=== PATIENT | female | born 1940 | race American Indian/Alaskan Native ===

== ENCOUNTER 2016-09-25 18:54 | Emergency (ER) | payer MEDICAID, MEDICARE ==
[2016-09-25 19:40] VITALS: BP 150/80; PULSE 57; RESP 20; TEMP 98.5; O2SAT 97
== END 2016-09-25 23:03 | disposition left against medical advice (07) ==
LOC: C.ER 18:54
DX: R52 Pain, unspecified (principal); Z02.9 Encounter for administrative examinations, unspecified

== ENCOUNTER 2016-10-02 13:55 | Emergency (ER) | payer MEDICARE ==
[2016-10-02 14:34] VITALS: BP 109/73; PULSE 73; RESP 18; TEMP 98.7; O2SAT 97
--- NOTE | 2016-10-02 15:04 | C.PDOC ---
History Of Present Illness 76 year old patient presents to the ED for opiate detox. Patient reports she has been using opiates to relieve her chronic neck pain. She admits her last use was today. Patient denies suicidal ideation, homicidal ideation, or any other complaints. Time Seen by Provider: 10/02/16 14:45 Chief Complaint (Nursing): Substance Abuse History Per: Patient History/Exam Limitations: no limitations Onset/Duration Of Symptoms: Other Current Symptoms Are (Timing): Still Present Suicide/Self Injury Attempted (Context): None Modifying Factor(s): Other (opiate) Severity: Mild Pain Scale Rating Of: 3 Recent travel outside of the [place]: No Past Medical History Reviewed: Historical Data, Nursing Documentation, Vital Signs Vital Signs: Last Vital Signs Temp 98.7 F 10/02/16 14:26 Pulse 73 10/02/16 14:26 Resp 18 10/02/16 15:10 BP 109/73 10/02/16 14:26 Pulse Ox 97 10/02/16 15:09 - Medical History PMH: Arthritis, HTN, Pancreatitis, Rheumatoid Arthritis Surgical History: Appendectomy - [facility] Procedures VACCINATION NEC (10/06/14) Family History: States: Unknown Family Hx - Social History Hx Alcohol Use: No Hx Substance Use: Yes (MORPHINE, OXYCODONE) - Immunization History Hx Influenza Vaccination: Yes Review Of Systems Except As Marked, All Systems Reviewed And Found Negative. Constitutional: Negative for: Fever Psych: Negative for: Suicidal ideation, Other (homicidal ideation) Physical Exam - Physical Exam Appears: Non-toxic, No Acute Distress Skin: Warm, Dry Head: Atraumatic, Normacephalic Neck: Normal ROM, Supple Chest: Symmetrical Cardiovascular: Rhythm Regular Respiratory: No Accessory Muscle Use Extremity: Normal ROM Extremity: Bilateral: Atraumatic Neurological/Psych: Oriented x3 Gait: Steady ED Course And Treatment O2 Sat by Pulse Oximetry: 97 (room air) Pulse Ox Interpretation: Normal Progress Note: No detox beds are available at this time. More information and phone number were given to contact the detox center. Disposition - Disposition Referrals: Dorina Humphrey, [Non-Staff] - Disposition: HOME/ ROUTINE Disposition Time: 14:45 Condition: GOOD Additional Instructions: Thank you for letting us take care of you today. Your provider was Dr. Woodson. You were treated for opiate abuse. The emergency medical care you received today was directed at your acute symptoms. If you were prescribed any medication, please fill it and take as directed. It may take several days for your symptoms to resolve. Return to the Emergency Department if your symptoms worsen, do not improve, or if you have any other problems. Please contact your doctor or call one of the physicians/clinics you have been referred to that are listed on the Patient Visit Information form that is included in your discharge packet. Bring any paperwork you were given at discharge with you along with any medications you are taking to your follow up visit. Our treatment cannot replace ongoing medical care by a primary care provider (PCP) outside of the emergency department. Thank you for allowing the [facility] team to be part of your care today. Follow up with the detox center (phone number given) to find out about bed availability. Instructions: Narcotic Abuse (ED) - Clinical Impression Clinical Impression: Drug dependence - Scribe Statement The provider has reviewed the documentation as recorded by the Scribe Micaela Painting Provider Attestation: All medical record entries made by the Scribe were at my direction and personally dictated by me. I have reviewed the chart and agree that the record accurately reflects my personal performance of the history, physical exam, medical decision making, and the department course for this patient. I have also personally directed, reviewed, and agree with the discharge instructions and disposition.
== END 2016-10-02 15:10 | disposition home or self-care (01) ==
LOC: C.ER 13:55
DX: F19.20 Other psychoactive substance dependence, uncomplicated (principal)

== ENCOUNTER 2016-10-11 19:35 | Inpatient (IN) | payer MEDICARE ==
--- NOTE | 2016-10-11 20:25 | C.PDOC ---
History Of Present Illness 76 y/o female presents to ED for oxycontin detox. Pt prescreened. No physical complaints at this time. Time Seen by Provider: 10/11/16 20:11 Chief Complaint (Nursing): Substance Abuse History Per: Patient History/Exam Limitations: no limitations Suicide/Self Injury Attempted (Context): None Modifying Factor(s): Narcotics Severity: Mild Involuntary Hold By: None Recent travel outside of the [place]: No Past Medical History Reviewed: Historical Data, Nursing Documentation, Vital Signs Vital Signs: Last Vital Signs Temp 97.8 F 10/11/16 19:58 Pulse 81 10/11/16 19:58 Resp 14 10/11/16 19:58 BP 129/78 10/11/16 19:58 Pulse Ox 100 10/11/16 20:25 - Medical History PMH: Arthritis, HTN, Pancreatitis, Rheumatoid Arthritis Surgical History: Appendectomy - [facility] Procedures VACCINATION NEC (10/06/14) Family History: States: Unknown Family Hx - Social History Hx Alcohol Use: No Hx Substance Use: Yes (MORPHINE, OXYCODONE) - Immunization History Hx Influenza Vaccination: Yes Review Of Systems Except As Marked, All Systems Reviewed And Found Negative. Physical Exam - Physical Exam Additional Physical Exam Comments: Constitutional: No acute distress. Head: Normocephalic. Atraumatic. Eyes: PERRL. Neck: Supple. Cardiovascular: Regular rate. Radial pulse 2+ bilaterally. Chest: No tenderness. Respiratory: Clear to auscultation bilaterally. GI: Soft. Nontender. Nondistended. Back: No CVA tenderness. Musculoskeletal: No tenderness or swelling of extremities. Skin: No rash. Neurologic: Alert, no focal deficit. ED Course And Treatment - Laboratory Results Result Diagrams: 10/11/16 20:40 10/11/16 20:40 O2 Sat by Pulse Oximetry: 100 (room air) Pulse Ox Interpretation: Normal Disposition - Disposition Disposition: HOSPITALIZED Disposition Time: 21:30 Condition: FAIR - Clinical Impression Clinical Impression: Opioid use disorder, severe, dependence - Scribe Statement The provider has reviewed the documentation as recorded by the Fabianoibavni Hernandez Provider Attestation: All medical record entries made by the Fabianoibe were at my direction and personally dictated by me. I have reviewed the chart and agree that the record accurately reflects my personal performance of the history, physical exam, medical decision making, and the department course for this patient. I have also personally directed, reviewed, and agree with the discharge instructions and disposition.
[2016-10-11 20:43] LABS: BASO % 0.3 % (0.0-2.0); EOS # 0.1 K/uL (0.0-0.7); EOS % 1.5 % (0.0-4.0); HEMOGLOBIN 12.5 g/dL (11.0-16.0); LYMPH # 1.7 K/uL (1.0-4.3); LYMPH % 20.4 % (20.0-40.0); MEAN CELL VOLUME 88.2 fL (81.0-99.0); MEAN CORPUSCULAR HEMOGLOBIN 29.1 pg (27.0-31.0); MEAN CORPUSCULAR HGB CONC 32.9 g/dL (33.0-37.0); MEAN PLATELET VOLUME 8.1 fL (7.2-11.7); MONO # 0.7 K/uL (0.0-0.8); MONO % 8.4 % (0.0-10.0); NEUT # 5.6 K/uL (1.8-7.0); NEUT % 69.4 % (50.0-75.0); NRBC % 0.1 % (0.0-2.0); RBC 4.3 Mil/uL (3.80-5.20); RED CELL DISTRIBUTION WIDTH 13.4 % (11.5-14.5); WHITE BLOOD COUNT 8.1 K/uL (4.8-10.8)
[2016-10-11 20:53] LABS: ALBUMIN 3.9 g/dL (3.5-5.0)
[2016-10-11 20:56] LABS: ALB/GLOB RATIO 1.3 (1.0-2.1); AST/SGOT 28 U/L (14-36); BLOOD UREA NITROGEN 15 mg/dL (7-17); GFR AFRICAN-AMERICAN 59; GFR NON-AFRICAN AMERICAN 49
[2016-10-11 20:57] LABS: ALT/SGPT 16 U/L (9-52); CALCIUM 9.5 mg/dl (8.6-10.4)
[2016-10-11 21:17] LABS: URINE BACTERIA RARE (<OCC); URINE BILIRUBIN NEGATIVE (NEGATIVE); URINE BLOOD NEGATIVE (NEGATIVE); URINE CLARITY Clear (Clear); URINE COLOR Yellow (YELLOW); URINE GLUCOSE (UA) NORMAL (Normal); URINE HYALINE CAST 0-2 /lpf (0-2); URINE LEUKOCYTE ESTERASE NEG Leu/uL (Negative); URINE NITRATE NEGATIVE (NEGATIVE); URINE PROTEIN NEGATIVE (NEGATIVE); URINE UROBILINOGEN NORMAL mg/dL (0.2-1.0)
[2016-10-11 21:20] LABS: BARBITURATES, UR NEGATIVE (NEGATIVE)
[2016-10-11 21:21] LABS: BENZODIAZEPINES, UR POSITIVE (NEGATIVE)
[2016-10-11 21:24] LABS: PHENCYCLIDINE, UR NEGATIVE (NEGATIVE)
[2016-10-11 21:29] LABS: OPIATES, UR POSITIVE (NEGATIVE)
[2016-10-12] MEDS ORDERED: Potassium Chloride 20 mEq ER Tab PO ONE (06:37)
--- NOTE | 2016-10-12 09:21 | CP.PCM.CON ---
<Beata Jo - Last Filed: 10/12/16 09:09> History of Present Illness - History of Present Illness History of Present Illness: Medicine Consult Note- Dr Green's Service Patient is a 76 year old female with PMHx of HTN, cerebral aneursym, cataracts, TIA, mitral valve prolapse, and chronic pain who was admitted to detox for opioid use disorder. Medicine team was consulted for medical management. Patient takes medication for her blood pressure control daily and is compliant with her meds. Patient follows with her PMD Dr Zuri Quezada at [facility] routinely. Patient also has seen a artillery officer in the past for her MVP and was told that she was stable and did not need intervention. Patient follows with neurosurgeon Dr Stein as outpatient and is currently in the process of arranging for repair of her aneurysm. Patient states that she feels well today and denies withdrawal symptoms such as nausea, vomiting, pain, tremor, headache , dizziness, abdominal pain, sweats, diarrhea, and constipation. This is patient's first time in detox unit and is looking forward to discontinuing her narcotic use. All other ROS reviewed and negative at this time. PMD: Dr Zuri Quezada PMHx: HTN, cerebral aneursym, cataracts, TIA, mitral valve prolapse, and chronic pain Home Meds: Cartia 180mg daily, Furosemide 40mg BID, Lopressor 25mg BID Surgical Hx: tonsillectomy, bilateral breast lumpectomy (benign), hysterectomy Family Hx: Mom- HTN Allergies: Erythromycin, iodine (anaphylaxis) Review of Systems - Constitutional Constitutional: As Per HPI. absent: Chills, Fatigue, Fever, Weakness - EENT Eyes: As Per HPI. absent: Change in Vision Ears: As Per HPI. absent: Dizziness Nose/Mouth/Throat: As Per HPI. absent: Sore Throat - Cardiovascular Cardiovascular: As Per HPI. absent: Chest Pain, Dyspnea, Dyspnea on Exertion, Lightheadedness, Palpitations, Pedal Edema, Rapid Heart Rate - Respiratory Respiratory: As Per HPI. absent: Cough, Dyspnea, Wheezing, Chest Congestion - Gastrointestinal Gastrointestinal: As Per HPI. absent: Abdominal Pain, Constipation, Diarrhea, Heartburn, Nausea, Vomiting - Genitourinary Genitourinary: As Per HPI. absent: Change in Urinary Stream, Difficulty Urinating - Musculoskeletal Musculoskeletal: As Per HPI. absent: Muscle Weakness, Numbness, Tingling - Integumentary Integumentary: As Per HPI. absent: New Lesions, Rash - Neurological Neurological: As Per HPI. absent: Dizziness, Headaches, Weakness - Psychiatric Psychiatric: As Per HPI. absent: Anxiety, Depression, Hopelessness - Endocrine Endocrine: As Per HPI. absent: Palpitations Past Patient History - Infectious Disease Hx of Infectious Diseases: None - Past Medical History & Family History Past Medical History?: Yes - Past Social History Smoking Status: Former Smoker - CARDIAC Hx Hypertension: Yes - PULMONARY Hx Respiratory Disorders: No - NEUROLOGICAL Hx Neurological Disorder: No - HEENT Hx Cataracts: Yes Hx Glaucoma: Yes - RENAL Hx Chronic Kidney Disease: No - ENDOCRINE/METABOLIC Hx Endocrine Disorders: No - HEMATOLOGICAL/ONCOLOGICAL Hx Blood Disorders: No - INTEGUMENTARY Hx Dermatological Problems: No - MUSCULOSKELETAL/RHEUMATOLOGICAL Hx Arthritis: Yes Hx Falls: Yes Hx Fractures: Yes Hx Herniated Disk: Yes Hx Rheumatoid Arthritis: Yes - GASTROINTESTINAL Hx Pancreatitis: Yes - GENITOURINARY/GYNECOLOGICAL Hx Genitourinary Disorders: No - PSYCHIATRIC Hx Depression: Yes Hx Substance Use: Yes (MORPHINE, OXYCONTIN) - SURGICAL HISTORY Hx Appendectomy: Yes Hx Hysterectomy: Yes Hx Tonsillectomy: Yes - ANESTHESIA Hx Anesthesia: Yes Hx Anesthesia Reactions: No Hx Malignant Hyperthermia: No Meds Allergies/Adverse Reactions: Allergies Allergy/AdvReac Type Severity Reaction Status Date / Time erythromycin base Allergy RASH Verified 10/11/16 20:02 Iodine and Iodide Containing Allergy RASH Verified 10/11/16 20:02 Produc - Medications Medications: Current Medications Diltiazem HCl (Cardizem Cd) 180 mg PO DAILY SHIRLEY Furosemide (Lasix) 40 mg PO BID SHIRLEY Metoprolol Tartrate (Lopressor) 25 mg PO BID SHIRLEY Pantoprazole Sodium (Protonix Ec Tab) 40 mg PO DAILY SHIRLEY Trazodone HCl (Desyrel) 50 mg PO HS PRN PRN Reason: insomnia Physical Exam - Constitutional Appears: Non-toxic, No Acute Distress - Head Exam Head Exam: ATRAUMATIC, NORMOCEPHALIC - Eye Exam Eye Exam: EOMI Additional comments: bilateral eye cataracts - ENT Exam ENT Exam: Mucous Membranes Moist, Normal Exam - Neck Exam Neck exam: Positive for: Normal Inspection Additional comments: No JVD - Respiratory Exam Respiratory Exam: Clear to Auscultation Bilateral, NORMAL BREATHING PATTERN. absent: Rhonchi, Wheezes, Respiratory Distress - Cardiovascular Exam Cardiovascular Exam: REGULAR RHYTHM, +S1, +S2. absent: Tachycardia, Irregular Rhythm, Systolic Murmur - GI/Abdominal Exam GI & Abdominal Exam: Normal Bowel Sounds, Soft. absent: Distended, Firm, Tenderness - Extremities Exam Extremities exam: Positive for: full ROM, normal inspection. Negative for: calf tenderness, pedal edema - Back Exam Back exam: NORMAL INSPECTION - Neurological Exam Neurological exam: Alert, CN II-XII Intact, Normal Gait, Oriented x3 - Psychiatric Exam Psychiatric exam: Normal Affect, Normal Mood - Skin Skin Exam: Dry, Intact, Normal Color, Warm Results - Vital Signs Recent Vital Signs: Last Vital Signs Temp 98.4 F 10/12/16 06:20 Pulse 75 10/12/16 06:20 Resp 18 10/12/16 06:20 BP 125/74 10/12/16 06:20 Pulse Ox 96 10/12/16 06:20 - Labs Result Diagrams: 10/11/16 20:40 10/11/16 20:40 Assessment & Plan - Assessment and Plan (Free Text) Assessment: 76 year old female with PMHx of HTN, cerebral aneursym, cataracts, TIA, mitral valve prolapse, and chronic pain who was consulted for medical management. 1. HTN * Well controlled * Continue home meds with holding parameters: Cardizem 180mg PO daily, Furosemide 40mg PO BID, and Lopressor 25mg PO BID * Vitals q4h 2. 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 Two 2mm medially and laterally projecting right-sided para ophthalmic aneurysms. * Maintain strict blood pressure control (SBP<140) * Patient following with outpatient neurosurgeon Dr Stein, no acute management at this time. 3. Chronic Pain * management per detox team Thank you for this interesting consult. We will continue to follow. Beata Jo DO, PGY-3 <Varghese Green - Last Filed: 10/12/16 14:21> Meds - Medications Medications: Current Medications Diltiazem HCl (Cardizem Cd) 180 mg PO DAILY SHIRLEY Furosemide (Lasix) 40 mg PO BID SHIRLEY Metoprolol Tartrate (Lopressor) 25 mg PO BID SHIRLEY Pantoprazole Sodium (Protonix Ec Tab) 40 mg PO DAILY SHIRLEY Trazodone HCl (Desyrel) 50 mg PO HS PRN PRN Reason: insomnia Results - Vital Signs Recent Vital Signs: Last Vital Signs Temp 98.1 F 10/12/16 09:00 Pulse 60 10/12/16 09:00 Resp 18 10/12/16 09:00 BP 149/79 10/12/16 09:00 Pulse Ox 99 10/12/16 09:00 - Labs Result Diagrams: 10/11/16 20:40 10/11/16 20:40 Attending/Attestation - Attestation I have personally seen and examined this patient.: Yes I have fully participated in the care of the patient.: Yes I have reviewed all pertinent clinical information: Yes Notes (Text): 10/12/16 14:20 Medical attending: Patient was seen and examined by me, agrees the above note by medical scheduler. The patient was not under any acute distress when we saw her, she explains to us that she's been taking narcotic pain medication for quite some time and she would like to get off these. She does have a history of aneurysms as well as hypertension for the duration while she is here regular follow her blood pressure values. Continue some of her home medication check blood work for tomorrow Thank you very much, Varghese Green
[2016-10-12] MEDS: diltiaZEM 180 mg/24 Hours CD Cap PO SCH (14:22)
[2016-10-12] MEDS: Pantoprazole 40 mg EC Tab PO SCH (14:26)
--- NOTE | 2016-10-12 14:44 | PCM.PSYCH ---
Initial Psychiatric Evaluation - Initial Psychiatric Evaluation Type of Admission: Voluntary Legal Status: Capacity Chief Complaint (in patient's own words): "I needed help" History of Present Illness and Precipitating Events: The patient is seen, chart reviewed and case discussed. This is a 76-year-old -[place] female, since 1990, has an adopted son and a daughter. She is on disability. The patient is here for opioid dependence. She was given OxyContin and MS-IR by pain doctors who "suddenly decided to cut (her) off." She claims that it's because of the stricter [place] regulations that they were afraid. She says she hasn't taken anything for 2 days and she feels she is getting into withdrawals. She has used up for 10 years, developed tolerance and had wdw sxs when she could not use. She has tried t cut back unsuccessfully in the past. She denies using too much to get high, and she denies using from the streets. She also denies all other drugs, alcohol and cigarette use. Past psych history: She was admitted once in early with depression to [facility]. She currently has mild anxiety but denies depression or other psych symptoms. Medical history: Aneurysm, high blood pressure, pain syndrome (mostly back, but also knees). She is planning on going to a non-narcotic pain specialist. We called a few for her. Family psych history: Sister and brother had abused opioids in the past. Current Medications: Active Medications Generic Name Dose Route Start Last Admin Trade Name Freq PRN Reason Stop Dose Admin Diltiazem HCl 180 mg 10/12/16 10:10/12/16 14:22 Cardizem Cd PO Not Given DAILY SHIRLEY Furosemide 40 mg 10/12/16 10:10/12/16 14:26 Lasix PO 40 mg BID SHIRLEY Administration Metoprolol Tartrate 25 mg 10/12/16 10:00 10/12/16 14:22 Lopressor PO Not Given BID SHIRLEY Pantoprazole Sodium 40 mg 10/12/16 10:10/12/16 14:26 Protonix Ec Tab PO 40 mg DAILY SHIRLEY Administration Trazodone HCl 50 mg 10/11/16 22:22 Desyrel PO HS PRN insomnia Past Psychiatric History - Past Psychiatric History Previous Treatment History: Inpatient Pertinent Medical Hx (Current Medical&Sleep Prob, Allergies): Allergies Allergy/AdvReac Type Severity Reaction Status Date / Time erythromycin base Allergy RASH Verified 10/11/16 20:02 Iodine and Iodide Containing Allergy RASH Verified 10/11/16 20:02 Produc Metoprolol Tartrate [Lopressor] 25 mg PO BID 10/12/14 Diltiazem HCl [Cartia Xt] 180 mg PO DAILY 09/25/16 Furosemide 40 mg PO BID 09/25/16 Review of Systems - Musculoskeletal Musculoskeletal: Back Pain, Myalgias, Neck Pain - Neurological Neurological: Weakness - Psychiatric Psychiatric: Abnormal Sleep Pattern, Anxiety, Difficulty Concentrating, Memory Loss. absent: Hallucinations, Homicidal Ideation, Paranoia, Suicidal Ideation Mental Status Examination - Personal Presentation Personal Presentation: Looks stated age - Affect Affect: Constricted - Motor Activity Motor Activity: Calm - Reliability in Providing Information Reliability in Providing Information: Good - Speech Speech: Organized - Mood Mood: Anxious - Formal Thought Process Formal Thought Process: No Impairment - Cognitive Functions Orientation: Person, Place, Situation, Time Sensorium: Alert Attention/Concentration: Easily distracted Estimate of Intelligence: Average Judgement: Intact, as evidence by: Insight regarding need for hospitalization Memory: Recent intact, as evidence by: Ability to recall events of the day, Remote impaired as evidenced by: Inability to recall historical events - Risk Risk: Withdrawal, Diminished functioning - Strength & Assets Inventory Strength & Assets Inventory: Intelligence, Family support, Cooperative - Limitations Limitations: Other DSM 5 DX - DSM 5 DSM 5 Diagnosis: Opioid dependence Opioid withdrawal Mild cognitive decline - Recommended/Plan of Treatment Treatment Recommendations and Plan of Treatment: Low dose methadone detox due to her age As needed meds Pharnacy called and doses are learned and started for all her medical meds Periactin is started as she wants to gain weight Continue remeron, too, but lower dose Support and psychoed GA for abstinence 33 min Projected ELOS: 4 days Prognosis: good with treatment Discharge Plan and Discharge Criteria: No wdw sxs refer back home and pain MDs - Smoking Cessation Smoking Cessation Initiated: No Reason for not providing: not smoking
[2016-10-12] MEDS ORDERED: Aluminum Hydroxide/Magnesium Hydroxide Susp (30 mL) PO PRN (15:02)
[2016-10-12] MEDS: diltiaZEM 120 mg/24 Hours CD Cap PO SCH (20:16)
[2016-10-12] MEDS: Lidocaine 5% Oint(35 gm) TOP SCH (20:16)
[2016-10-13 07:44] LABS: HEMOGLOBIN 13.7 g/dL (11.0-16.0); MEAN CELL VOLUME 88.1 fL (81.0-99.0); MEAN CORPUSCULAR HEMOGLOBIN 28.7 pg (27.0-31.0); MEAN CORPUSCULAR HGB CONC 32.6 g/dL (33.0-37.0); MEAN PLATELET VOLUME 8.8 fL (7.2-11.7); RBC 4.77 Mil/uL (3.80-5.20); RED CELL DISTRIBUTION WIDTH 13.3 % (11.5-14.5); WHITE BLOOD COUNT 7.6 K/uL (4.8-10.8)
[2016-10-13 08:01] LABS: ALBUMIN 3.7 g/dL (3.5-5.0)
[2016-10-13 08:03] LABS: AST/SGOT 23 U/L (14-36); GFR AFRICAN-AMERICAN > 60; GFR NON-AFRICAN AMERICAN 54
[2016-10-13 08:04] LABS: ALB/GLOB RATIO 1.2 (1.0-2.1); ALT/SGPT 20 U/L (9-52); BLOOD UREA NITROGEN 14 mg/dL (7-17); CALCIUM 9.3 mg/dl (8.6-10.4)
[2016-10-13] MEDS: Pantoprazole 40 mg EC Tab PO SCH (09:32)
[2016-10-13] MEDS: diltiaZEM 180 mg/24 Hours CD Cap PO SCH (09:34)
[2016-10-13] MEDS: Lidocaine 5% Oint(35 gm) TOP SCH ×2 (09:37→21:06)
[2016-10-13] MEDS ORDERED: diltiaZEM 120 mg/24 Hours CD Cap PO SCH (10:00)
[2016-10-13] MEDS ORDERED: Potassium Chloride 20 mEq ER Tab PO ONE (10:40)
[2016-10-13] MEDS: diltiaZEM 120 mg/24 Hours CD Cap PO SCH (11:07)
--- NOTE | 2016-10-13 11:34 | PCM.PYCHPN ---
Psychiatric Progress Note - Psychiatric Progress Note Patient seen today, length of contact: 15 min Patient Chief Complaint: I'm experiencing withdrawal symptoms Problems Identified/Issues Discussed: Patient seen and evaluated, chart reviewed and discussed with the nurse. As per the staff, patient reports irritability and reports withdrawal symptoms including abdominal cramps, back pain, anxiety, and sweating. She is tolerating the detox protocol medications and denies any side effects of the medications. She denies any suicidal ideation or homicidal ideation. Supportive therapy and psychoeducation were given. Medication Change: No Medical Record Reviewed: Yes Mental Status Examination - Cognitive Function Orientation: Person, Place, Situation, Time Memory: Intact Attention: WNL Concentration: Poor Association: WNL Fund of Knowledge: Poor - Mood Mood: Anxious - Affect Affect: Constricted - Speech Speech: Soft - Formal Thought Process Formal Thought Process: No Impairment - Suicidal Ideation Suicidal Ideation: No - Homicidal Ideation Homicidal Ideation: No Goal/Treatment Plan - Goal/Treatment Plan Need for Continued Stay: Discharge may exacerbated symptoms, Severe functional impairment Progress Toward Problem(s) and Goals/Treatment Plan: Opioid dependence Opioid withdrawal Mild cognitive decline Low dose methadone detox due to her age As needed meds Pharnacy called and doses are learned and started for all her medical meds Periactin is started as she wants to gain weight Continue remeron, too, but lower dose Support and psychoed PA for abstinence - Smoking Cessation Smoking Cessation Initiated: No
[2016-10-13] MEDS: Lidocaine 5% Patch TD SCH (22:30)
[2016-10-14 07:58] LABS: HEMOGLOBIN 14.9 g/dL (11.0-16.0); MEAN CELL VOLUME 89.1 fL (81.0-99.0); MEAN CORPUSCULAR HEMOGLOBIN 28.5 pg (27.0-31.0); MEAN PLATELET VOLUME 9.1 fL (7.2-11.7); RBC 5.23 Mil/uL (3.80-5.20); RED CELL DISTRIBUTION WIDTH 13.6 % (11.5-14.5); WHITE BLOOD COUNT 14.8 K/uL (4.8-10.8)
[2016-10-14 08:43] LABS: ALBUMIN 4.1 g/dL (3.5-5.0)
[2016-10-14 08:46] LABS: AST/SGOT 24 U/L (14-36); GFR AFRICAN-AMERICAN > 60; GFR NON-AFRICAN AMERICAN > 60
[2016-10-14 08:47] LABS: ALB/GLOB RATIO 1.2 (1.0-2.1); ALT/SGPT 14 U/L (9-52); BLOOD UREA NITROGEN 13 mg/dL (7-17); CALCIUM 9.9 mg/dl (8.6-10.4); MAGNESIUM 2.2 mg/dL (1.6-2.3)
[2016-10-14] MEDS ORDERED: Potassium Chloride 20 mEq ER Tab PO ONE (09:08)
[2016-10-14] MEDS: NEOMYCIN OP SCH (10:11)
[2016-10-14] MEDS: HYDROCORT OP SCH (10:11)
[2016-10-14] MEDS: Lidocaine 5% Oint(35 gm) TOP SCH ×2 (10:11→19:58)
[2016-10-14] MEDS: POLYMYXIN OP SCH (10:11)
--- NOTE | 2016-10-14 10:44 | PCM.PYCHPN ---
Psychiatric Progress Note - Psychiatric Progress Note Patient seen today, length of contact: 16 min Patient Chief Complaint: I'm experiencing withdrawal symptoms Problems Identified/Issues Discussed: Patient seen and evaluated, chart reviewed and discussed with the nurse. As per the staff, last night patient started scoring and started having severe nausea, vomiting, and abdominal cramps. She reports other withdrawal symptoms including back pain, anxiety, and headaches. Because of continuous vomiting medicine was consulted. However patient is tolerating the detox protocol medications and denies any side effects of the medications. Supportive therapy and psychoeducation were given. Medication Change: Yes (Methadone taper) Medical Record Reviewed: Yes Mental Status Examination - Cognitive Function Orientation: Person, Place, Situation, Time Memory: Intact Attention: WNL Concentration: Poor Association: WNL Fund of Knowledge: Poor - Mood Mood: Anxious - Affect Affect: Constricted - Speech Speech: Soft - Formal Thought Process Formal Thought Process: No Impairment - Suicidal Ideation Suicidal Ideation: No - Homicidal Ideation Homicidal Ideation: No Goal/Treatment Plan - Goal/Treatment Plan Need for Continued Stay: Discharge may exacerbated symptoms, Severe functional impairment Progress Toward Problem(s) and Goals/Treatment Plan: Opioid dependence Opioid withdrawal Mild cognitive decline Low dose methadone detox due to her age As needed meds Periactin is started as she wants to gain weight Continue remeron, too, but lower dose Support and psychoed [place] for abstinence - Smoking Cessation Smoking Cessation Initiated: No
[2016-10-14] MEDS: Pantoprazole 40 mg EC Tab PO SCH (11:54)
[2016-10-14] MEDS: diltiaZEM 120 mg/24 Hours CD Cap PO SCH (11:55)
[2016-10-14] MEDS ORDERED: Sodium Chloride 0.45% 1,000 ML IV ONE (12:01)
[2016-10-14] MEDS ORDERED: Morphine 4 MG/ML VIAL IV SCH (13:00)
[2016-10-14] MEDS ORDERED: Morphine 15 mg Immediate Release Tab PO SCH (15:15)
--- NOTE | 2016-10-14 20:36 | CP.PCM.PN ---
Subjective - Date & Time of Evaluation Date of Evaluation: 10/14/16 Time of Evaluation: 10:30 - Subjective Subjective: Medicine Note ( PGY 1) : Dr. Green's Note Patient was seen and examined at bedside. Patient was not doing well and had complaints of nausea, vomiting, diarrhea and symptoms of substance withdrawal. Patient was then transfer from detox to the medical-surg floor to be medically managed and monitored. Patient denies chest pain, sob, fever, chills, but reports abd pain, diarrhea, nausea, vomiting and fatigue. Objective - Vital Signs/Intake and Output Vital Signs (last 24 hours): Temp Pulse Resp BP Pulse Ox 98.2 F 60 18 110/65 97 10/14/16 14:04 10/14/16 14:04 10/14/16 14:04 10/14/16 19:24 10/14/16 14:04 - Medications Medications: Current Medications Acetaminophen (Tylenol 325mg Tab) 325 mg PO Q6 PRN PRN Reason: Pain, moderate (4-7) Al Hydrox/Mg Hydrox/Simethicone (Maalox 30 Ml) 30 ml PO TID PRN PRN Reason: Indigestion / Heartburn Last Admin: 10/14/16 06:50 Dose: 30 ml Amlodipine Besylate (Norvasc) 10 mg PO DAILY [facility] Last Admin: 10/14/16 11:54 Dose: 10 mg Cyproheptadine HCl (Periactin) 4 mg PO HS [facility] Last Admin: 10/13/16 22:05 Dose: 4 mg Diltiazem HCl (Cardizem Cd) 120 mg PO DAILY [facility] Last Admin: 10/14/16 11:55 Dose: 120 mg Donepezil HCl (Aricept) 10 mg PO HS [facility] Last Admin: 10/13/16 22:05 Dose: 10 mg Furosemide (Lasix) 20 mg PO DAILY [facility] Last Admin: 10/14/16 11:53 Dose: 20 mg Heparin Sodium (Porcine) (Heparin) 5,000 units SC Q8 [facility] Hydralazine HCl (Apresoline) 10 mg IVP Q6H [facility] Last Admin: 10/14/16 19:22 Dose: Not Given Hydroxyzine HCl (Atarax) 10 mg PO Q6H PRN PRN Reason: Anxiety Sodium Chloride (Sodium Chloride 0.45%) 1,000 mls @ 80 mls/hr IV .[id number] ONE Stop: 10/15/16 00:30 Last Admin: 10/14/16 18:58 Dose: 80 mls/hr Ibuprofen (Motrin Tab) 400 mg PO Q6H PRN PRN Reason: Pain, moderate (4-7) Last Admin: 10/13/16 20:44 Dose: 400 mg Lidocaine (Lidocaine 5%) 0 gm TOP BID [facility] Last Admin: 10/14/16 19:58 Dose: 1 scoopful Lidocaine (Lidoderm) 1 ea TD HS [facility] Last Admin: 10/13/16 22:30 Dose: Not Given Loperamide HCl (Imodium) 2 mg PO Q8 PRN PRN Reason: Diarrhea Last Admin: 10/14/16 04:01 Dose: 2 mg Methadone HCl (Methadone) 10 mg PO DAILY [facility] PRN Reason: Taper Stop: 10/18/16 09:59 Metoprolol Tartrate (Lopressor) 25 mg PO BID [facility] Last Admin: 10/14/16 19:24 Dose: 25 mg Mirtazapine (Remeron) 15 mg PO HS [facility] Last Admin: 10/13/16 22:05 Dose: 15 mg Morphine Sulfate (Morphine) 4 mg IV Q3 [facility] Morphine Sulfate (Morphine Immediate Release Tab) 15 mg PO Q12H [facility] Last Admin: 10/14/16 15:15 Dose: 15 mg Neomycin/Polymyxin/Hydrocortisone (Cortisporin Opht Susp) 0 ml OP DAILY [facility] Last Admin: 10/14/16 10:11 Dose: 1 drop Ondansetron HCl (Zofran Tab) 4 mg PO Q8 PRN PRN Reason: Nausea/Vomiting Last Admin: 10/14/16 04:01 Dose: 4 mg Ondansetron HCl (Zofran Inj) 4 mg IVP Q6 [facility] Last Admin: 10/14/16 19:24 Dose: 4 mg Oxycodone HCl (Oxycontin Extended Release Tab) 10 mg PO Q12H [facility] Stop: 10/17/16 22:01 Pantoprazole Sodium (Protonix Ec Tab) 40 mg PO DAILY [facility] Last Admin: 10/14/16 11:54 Dose: 40 mg Trazodone HCl (Desyrel) 50 mg PO HS PRN PRN Reason: insomnia - Labs Labs: 10/14/16 07:47 10/14/16 07:47 - Constitutional Appears: In Acute Distress - Head Exam Head Exam: NORMAL INSPECTION, NORMOCEPHALIC - Eye Exam Eye Exam: EOMI, Normal appearance - ENT Exam ENT Exam: Mucous Membranes Moist, Normal Exam - Respiratory Exam Respiratory Exam: Clear to Ausculation Bilateral, NORMAL BREATHING PATTERN - Cardiovascular Exam Cardiovascular Exam: REGULAR RHYTHM, +S1, +S2 - GI/Abdominal Exam GI & Abdominal Exam: Soft, Normal Bowel Sounds - Extremities Exam Extremities Exam: Normal Capillary Refill, Normal Inspection - Neurological Exam Neurological Exam: Alert, Awake, Oriented x3 - Psychiatric Exam Psychiatric exam: Normal Affect, Normal Mood - Skin Skin Exam: Dry, Normal Color, Warm Assessment and Plan (1) Substance abuse withdrawal Assessment & Plan: Psychiatry on board (Dr. Perez)---> Help appreciated Methadone Taper : On hold due to nausea Morphine 4mg IV Q3 due to nausea Morphine 15mg PO Q12H Status: Acute (2) Nausea & vomiting Assessment & Plan: Zofran 4mg IV q6H PRN Status: Acute (3) Diarrhea Assessment & Plan: 1/2 NS @ 80mls/hr Imodium 2mg PO Q8h PRN Maalox held Status: Acute (4) Chronic pain Assessment & Plan: Lidoderm Transdermal patch 5% TD HS Morphine 15mg PO Q12h Status: Chronic (5) Hypertension Assessment & Plan: Continue home meds with holding parameters: Cardizem 180mg PO daily, Furosemide 40mg PO BID, and Lopressor 25mg PO BID * Hydralazine 10mg IV if SBP >160mmhg * Vitals q4h Status: Chronic (6) Cerebral aneurysm Assessment & Plan: Last Brain MRA from 09/2014 reviewed: A 8mm medially-projecting, para opthalmic aneurysm arising from the left supraclinoid ICA. 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 Two 2mm medially and laterally projecting right-sided para ophthalmic aneurysms. * Maintain strict blood pressure control (SBP<140) * Patient following with outpatient neurosurgeon Dr Stein, no acute management at this time. Status: Chronic (7) Prophylactic measure Assessment & Plan: Protonix 40mg PO daily Heparin 5000 units SC q8h Status: Acute
[2016-10-14] MEDS: Lidocaine 5% Patch TD SCH (22:09)
[2016-10-14] MEDS: oxyCODONE 10 mg ER Tab (oxyCONTIN) PO SCH (22:23)
[2016-10-15 08:32] LABS: BASO % 0.3 % (0.0-2.0); EOS # 0.1 K/uL (0.0-0.7); EOS % 0.9 % (0.0-4.0); LYMPH # 1.9 K/uL (1.0-4.3); LYMPH % 17.2 % (20.0-40.0); MEAN CELL VOLUME 88.6 fL (81.0-99.0); MEAN CORPUSCULAR HEMOGLOBIN 28.8 pg (27.0-31.0); MEAN CORPUSCULAR HGB CONC 32.5 g/dL (33.0-37.0); MEAN PLATELET VOLUME 9.5 fL (7.2-11.7); MONO # 0.9 K/uL (0.0-0.8); MONO % 8.3 % (0.0-10.0); NEUT # 8.2 K/uL (1.8-7.0); NEUT % 73.3 % (50.0-75.0); NRBC % 0.1 % (0.0-2.0); RBC 4.45 Mil/uL (3.80-5.20); RED CELL DISTRIBUTION WIDTH 13.5 % (11.5-14.5); WHITE BLOOD COUNT 11.2 K/uL (4.8-10.8)
[2016-10-15 08:40] LABS: ALBUMIN 3.4 g/dL (3.5-5.0)
[2016-10-15 08:44] LABS: ALB/GLOB RATIO 1.2 (1.0-2.1); MAGNESIUM 2.2 mg/dL (1.6-2.3)
[2016-10-15 08:50] LABS: HEMOGLOBIN 12.8 g/dL (11.0-16.0)
[2016-10-15] MEDS ORDERED: Potassium Chloride 20 mEq ER Tab PO ONE (09:51)
--- NOTE | 2016-10-15 09:52 | CP.PCM.PN ---
<[place] - Last Filed: 10/15/16 19:22> Subjective - Date & Time of Evaluation Date of Evaluation: 10/15/16 Time of Evaluation: 09:20 - Subjective Subjective: Medicine Note (PGY 1) : Dr. Loza's Service Patient was seen and examined at bedside. Patient reports no acute events overnight. Patient states that she is doing much better. Patient denies abd pain , diarrhea, nausea, vomiting, chest pain, sob, fever or chills. Patient had no new complaints Objective - Vital Signs/Intake and Output Vital Signs (last 24 hours): Temp Pulse Resp BP Pulse Ox 97.9 F 64 20 145/80 96 10/15/16 07:20 10/15/16 07:20 10/15/16 07:20 10/15/16 07:20 10/15/16 07:20 Intake and Output: 10/15/16 10/15/16 06:59 18:59 Intake Total 440 Balance 440 - Medications Medications: Current Medications Acetaminophen (Tylenol 325mg Tab) 325 mg PO Q6 PRN PRN Reason: Pain, moderate (4-7) Amlodipine Besylate (Norvasc) 10 mg PO DAILY [facility] Last Admin: 10/14/16 11:54 Dose: 10 mg Cyproheptadine HCl (Periactin) 4 mg PO HS [facility] Last Admin: 10/14/16 22:11 Dose: 4 mg Diltiazem HCl (Cardizem Cd) 120 mg PO DAILY [facility] Last Admin: 10/14/16 11:55 Dose: 120 mg Donepezil HCl (Aricept) 10 mg PO HS [facility] Last Admin: 10/14/16 22:09 Dose: 10 mg Furosemide (Lasix) 20 mg PO DAILY [facility] Last Admin: 10/14/16 11:53 Dose: 20 mg Heparin Sodium (Porcine) (Heparin) 5,000 units SC Q8 [facility] Last Admin: 10/15/16 05:11 Dose: 5,000 units Hydralazine HCl (Apresoline) 10 mg IVP Q6H [facility] Last Admin: 10/15/16 06:55 Dose: Not Given Hydroxyzine HCl (Atarax) 10 mg PO Q6H PRN PRN Reason: Anxiety Ibuprofen (Motrin Tab) 400 mg PO Q6H PRN PRN Reason: Pain, moderate (4-7) Last Admin: 10/13/16 20:44 Dose: 400 mg Lidocaine (Lidocaine 5%) 0 gm TOP BID [facility] Last Admin: 10/14/16 19:58 Dose: 1 scoopful Lidocaine (Lidoderm) 1 ea TD HS [facility] Last Admin: 10/14/16 22:09 Dose: 1 ea Loperamide HCl (Imodium) 2 mg PO Q8 PRN PRN Reason: Diarrhea Last Admin: 10/14/16 04:01 Dose: 2 mg Methadone HCl (Methadone) 10 mg PO DAILY [facility] PRN Reason: Taper Stop: 10/18/16 09:59 Metoprolol Tartrate (Lopressor) 25 mg PO BID [facility] Last Admin: 10/14/16 19:24 Dose: 25 mg Mirtazapine (Remeron) 15 mg PO HS [facility] Last Admin: 10/14/16 22:09 Dose: 15 mg Neomycin/Polymyxin/Hydrocortisone (Cortisporin Opht Susp) 0 ml OP DAILY [facility] Last Admin: 10/14/16 10:11 Dose: 1 drop Ondansetron HCl (Zofran Tab) 4 mg PO Q8 PRN PRN Reason: Nausea/Vomiting Last Admin: 10/14/16 04:01 Dose: 4 mg Ondansetron HCl (Zofran Inj) 4 mg IVP Q6 [facility] Last Admin: 10/15/16 06:57 Dose: Not Given Oxycodone HCl (Oxycontin Extended Release Tab) 10 mg PO Q12H [facility] Stop: 10/17/16 22:01 Last Admin: 10/14/16 22:23 Dose: 10 mg Pantoprazole Sodium (Protonix Ec Tab) 40 mg PO DAILY [facility] Last Admin: 10/14/16 11:54 Dose: 40 mg Potassium Chloride (K-Dur 20 Meq Er Tab) 40 meq PO ONCE ONE Stop: 10/15/16 09:52 Trazodone HCl (Desyrel) 50 mg PO HS PRN PRN Reason: insomnia - Labs Labs: 10/15/16 08:22 10/15/16 08:22 - Constitutional Appears: Well, No Acute Distress - Head Exam Head Exam: NORMAL INSPECTION, NORMOCEPHALIC - Eye Exam Eye Exam: EOMI, Normal appearance - ENT Exam ENT Exam: Mucous Membranes Moist, Normal Exam - Respiratory Exam Respiratory Exam: Clear to Ausculation Bilateral, NORMAL BREATHING PATTERN - Cardiovascular Exam Cardiovascular Exam: REGULAR RHYTHM, +S1, +S2 - GI/Abdominal Exam GI & Abdominal Exam: Soft, Normal Bowel Sounds - Extremities Exam Extremities Exam: Normal Inspection - Neurological Exam Neurological Exam: Alert, Awake, Oriented x3 - Psychiatric Exam Psychiatric exam: Normal Affect, Normal Mood - Skin Skin Exam: Dry, Normal Color, Warm Assessment and Plan (1) Substance abuse withdrawal Assessment & Plan: Psychiatry on board (Dr. Perez)---> Help appreciated Methadone Taper : On hold due to nausea * Restarted today and patient will receive last dose tomorrow morning Morphine 4mg IV Q3 due to nausea (Discontinued) Morphine 15mg PO Q12H (Discontinued) Status: Acute (2) Nausea & vomiting Assessment & Plan: Resolved Zofran 4mg IV q6H PRN Status: Acute (3) Diarrhea Assessment & Plan: Resolved 1/2 NS @ 80mls/hr Imodium 2mg PO Q8h PRN Maalox held Status: Acute (4) Chronic pain Assessment & Plan: Lidoderm Transdermal patch 5% TD HS Morphine 15mg PO Q12h (Discotinued as of 10/13/16) Oxycodone 10mg po Q12H Status: Chronic (5) Hypertension Assessment & Plan: Continue home meds with holding parameters: Cardizem 180mg PO daily, Furosemide 40mg PO BID, and Lopressor 25mg PO BID * Hydralazine 10mg IV if SBP >160mmhg * Vitals q4h Status: Chronic (6) Cerebral aneurysm Assessment & Plan: Last Brain MRA from 09/2014 reviewed: A 8mm medially-projecting, para opthalmic aneurysm arising from the left supraclinoid ICA. 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 Two 2mm medially and laterally projecting right-sided para ophthalmic aneurysms. * Maintain strict blood pressure control (SBP<140) * Patient following with outpatient neurosurgeon Dr Stein, no acute management at this time. Status: Chronic (7) Prophylactic measure Assessment & Plan: Ambulating Protonix 40mg PO daily Heparin 5000 units SC q8h Status: Acute <Jeffery Loza - Last Filed: 10/16/16 10:06> Objective - Vital Signs/Intake and Output Vital Signs (last 24 hours): Temp Pulse Resp BP Pulse Ox 98.0 F 55 L 22 117/57 L 98 10/16/16 07:06 10/16/16 07:06 10/16/16 07:06 10/16/16 07:06 10/16/16 07:06 Intake and Output: 10/16/16 10/16/16 06:59 18:59 Intake Total 420 Balance 420 - Medications Medications: Current Medications Acetaminophen (Tylenol 325mg Tab) 325 mg PO Q6 PRN PRN Reason: Pain, moderate (4-7) Last Admin: 10/15/16 22:09 Dose: 325 mg Amlodipine Besylate (Norvasc) 10 mg PO DAILY [facility] Last Admin: 10/15/16 10:02 Dose: 10 mg Cyproheptadine HCl (Periactin) 4 mg PO HS [facility] Last Admin: 10/15/16 21:12 Dose: 4 mg Diltiazem HCl (Cardizem Cd) 120 mg PO DAILY [facility] Last Admin: 10/15/16 09:59 Dose: 120 mg Donepezil HCl (Aricept) 10 mg PO HS [facility] Last Admin: 10/15/16 21:12 Dose: 10 mg Furosemide (Lasix) 20 mg PO DAILY [facility] Last Admin: 10/15/16 10:00 Dose: 20 mg Heparin Sodium (Porcine) (Heparin) 5,000 units SC Q8 [facility] Last Admin: 10/16/16 05:25 Dose: 5,000 units Hydralazine HCl (Apresoline) 10 mg IVP Q6H [facility] Last Admin: 10/16/16 05:17 Dose: Not Given Hydroxyzine HCl (Atarax) 10 mg PO Q6H PRN PRN Reason: Anxiety Ibuprofen (Motrin Tab) 400 mg PO Q6H PRN PRN Reason: Pain, moderate (4-7) Last Admin: 10/16/16 05:11 Dose: 400 mg Lidocaine (Lidocaine 5%) 0 gm TOP BID [facility] Last Admin: 10/15/16 17:26 Dose: 1 scoopful Lidocaine (Lidoderm) 1 ea TD HS [facility] Last Admin: 10/15/16 21:12 Dose: 1 ea Loperamide HCl (Imodium) 2 mg PO Q8 PRN PRN Reason: Diarrhea Last Admin: 10/14/16 04:01 Dose: 2 mg Metoprolol Tartrate (Lopressor) 25 mg PO BID [facility] Last Admin: 10/15/16 17:21 Dose: 25 mg Mirtazapine (Remeron) 15 mg PO HS [facility] Last Admin: 10/15/16 21:12 Dose: 15 mg Neomycin/Polymyxin/Hydrocortisone (Cortisporin Opht Susp) 0 ml OP DAILY [facility] Last Admin: 10/15/16 10:00 Dose: 1 drop Ondansetron HCl (Zofran Tab) 4 mg PO Q8 PRN PRN Reason: Nausea/Vomiting Last Admin: 10/14/16 04:01 Dose: 4 mg Ondansetron HCl (Zofran Inj) 4 mg IVP Q6 [facility] Last Admin: 10/16/16 08:27 Dose: Not Given Oxycodone HCl (Oxycontin Extended Release Tab) 10 mg PO Q12H [facility] Stop: 10/17/16 22:01 Last Admin: 10/15/16 21:19 Dose: Not Given Pantoprazole Sodium (Protonix Ec Tab) 40 mg PO DAILY [facility] Last Admin: 10/15/16 10:02 Dose: 40 mg Trazodone HCl (Desyrel) 50 mg PO HS PRN PRN Reason: insomnia - Labs Labs: 10/16/16 07:55 10/16/16 07:55 Attending/Attestation - Attestation I have personally seen and examined this patient.: Yes I have fully participated in the care of the patient.: Yes I have reviewed all pertinent clinical information, including history, physical exam and plan: Yes Notes (Text): 10/16/16 10:05 Patient was seen and examined at bedside with the resident Patient stated that she is feeling better She continues to be on methadone taper Discharge planning once she has completed methadone taper Discussed the plan of care with the resident and agree with the history and physical and assessment/plan documented by the resident. 10/16/16 10:06
[2016-10-15] MEDS: diltiaZEM 120 mg/24 Hours CD Cap PO SCH (09:59)
[2016-10-15] MEDS: HYDROCORT OP SCH (10:00)
[2016-10-15] MEDS: NEOMYCIN OP SCH (10:00)
[2016-10-15] MEDS: POLYMYXIN OP SCH (10:00)
[2016-10-15] MEDS: Lidocaine 5% Oint(35 gm) TOP SCH ×2 (10:01→17:26)
[2016-10-15] MEDS: oxyCODONE 10 mg ER Tab (oxyCONTIN) PO SCH ×2 (10:02→21:19)
[2016-10-15] MEDS: Pantoprazole 40 mg EC Tab PO SCH (10:02)
[2016-10-15] MEDS: Lidocaine 5% Patch TD SCH (21:12)
[2016-10-16 08:07] LABS: BASO # 0.1 K/uL (0.0-0.2); BASO % 0.9 % (0.0-2.0); EOS # 0.1 K/uL (0.0-0.7); EOS % 1.5 % (0.0-4.0); HEMOGLOBIN 12.7 g/dL (11.0-16.0); LYMPH # 1.8 K/uL (1.0-4.3); MEAN CORPUSCULAR HEMOGLOBIN 28.9 pg (27.0-31.0); MEAN CORPUSCULAR HGB CONC 32.5 g/dL (33.0-37.0); MEAN PLATELET VOLUME 9.8 fL (7.2-11.7); MONO # 0.7 K/uL (0.0-0.8); MONO % 9.4 % (0.0-10.0); NEUT # 4.6 K/uL (1.8-7.0); NEUT % 63.2 % (50.0-75.0); RBC 4.4 Mil/uL (3.80-5.20); RED CELL DISTRIBUTION WIDTH 13.5 % (11.5-14.5); WHITE BLOOD COUNT 7.2 K/uL (4.8-10.8)
[2016-10-16 08:19] LABS: ALBUMIN 3.2 g/dL (3.5-5.0)
[2016-10-16 08:22] LABS: AST/SGOT 30 U/L (14-36); GFR AFRICAN-AMERICAN > 60; GFR NON-AFRICAN AMERICAN 54
[2016-10-16 08:23] LABS: ALB/GLOB RATIO 1.2 (1.0-2.1); ALT/SGPT 22 U/L (9-52); BLOOD UREA NITROGEN 30 mg/dL (7-17); MAGNESIUM 1.9 mg/dL (1.6-2.3)
[2016-10-16] MEDS: Pantoprazole 40 mg EC Tab PO SCH (10:38)
[2016-10-16] MEDS: diltiaZEM 120 mg/24 Hours CD Cap PO SCH (10:38)
[2016-10-16] MEDS: NEOMYCIN OP SCH (10:39)
[2016-10-16] MEDS: POLYMYXIN OP SCH (10:39)
[2016-10-16] MEDS: HYDROCORT OP SCH (10:39)
[2016-10-16] MEDS: Lidocaine 5% Oint(35 gm) TOP SCH ×2 (10:39→18:16)
[2016-10-16] MEDS: oxyCODONE 10 mg ER Tab (oxyCONTIN) PO SCH ×2 (10:42→22:34)
--- NOTE | 2016-10-16 10:44 | PCM.PYCHPN ---
Psychiatric Progress Note - Psychiatric Progress Note Patient seen today, length of contact: 16 min Patient Chief Complaint: "I am better today" Problems Identified/Issues Discussed: The pt is seen, chart reviewed and case discussed. She is transferred to medicine due to the severity of her wdw sxs and compromising her health due to her age. She, however, is better now. Has one last dose left for tomorrow am She will then leave. Not interested in [facility] treatment afterwards as she did not have bhv aspects of addiction. She wants to see a new pain dr who will not rx her any opioids. Support given Medication Change: Yes (Methadone taper) Medical Record Reviewed: Yes Mental Status Examination - Cognitive Function Orientation: Person, Place, Situation, Time Memory: Intact Attention: WNL Concentration: Poor Association: WNL Fund of Knowledge: Poor - Mood Mood: Anxious - Affect Affect: Constricted - Speech Speech: Soft - Formal Thought Process Formal Thought Process: No Impairment - Suicidal Ideation Suicidal Ideation: No - Homicidal Ideation Homicidal Ideation: No Goal/Treatment Plan - Goal/Treatment Plan Need for Continued Stay: Discharge may exacerbated symptoms, Severe functional impairment Progress Toward Problem(s) and Goals/Treatment Plan: Low dose methadone detox ending tomorrow Cleared for d/c As needed meds Support and psychoed [place] for abstinence
[2016-10-16 16:29] VITALS: RESP 20
--- NOTE | 2016-10-16 20:25 | CP.PCM.PN ---
<John Man - Last Filed: 10/16/16 20:14> Subjective - Date & Time of Evaluation Date of Evaluation: 10/16/16 Time of Evaluation: 13:00 - Subjective Subjective: Medicine Note (PGY 1) : Dr. Loza's Service Patient was seen and examined at bedside. Patient reports no acute events overnight. Patient states that she is doing much better. Patient was frustrated because she claims someone stole her sweater. Patient denies abd pain, diarrhea , nausea, vomiting, chest pain, sob, fever or chills. Patient had no new complaints Objective - Vital Signs/Intake and Output Vital Signs (last 24 hours): Temp Pulse Resp BP Pulse Ox 98.6 F 76 20 119/62 97 10/16/16 16:00 10/16/16 16:00 10/16/16 16:00 10/16/16 18:17 10/16/16 16:00 Intake and Output: 10/16/16 10/17/16 18:59 06:59 Intake Total 720 Balance 720 - Medications Medications: Current Medications Acetaminophen (Tylenol 325mg Tab) 325 mg PO Q6 PRN PRN Reason: Pain, moderate (4-7) Last Admin: 10/15/16 22:09 Dose: 325 mg Amlodipine Besylate (Norvasc) 10 mg PO DAILY [facility] Last Admin: 10/16/16 10:39 Dose: 10 mg Cyproheptadine HCl (Periactin) 4 mg PO HS [facility] Last Admin: 10/15/16 21:12 Dose: 4 mg Diltiazem HCl (Cardizem Cd) 120 mg PO DAILY [facility] Last Admin: 10/16/16 10:38 Dose: 120 mg Donepezil HCl (Aricept) 10 mg PO HS [facility] Last Admin: 10/15/16 21:12 Dose: 10 mg Furosemide (Lasix) 20 mg PO DAILY [facility] Last Admin: 10/16/16 10:38 Dose: 20 mg Heparin Sodium (Porcine) (Heparin) 5,000 units SC Q8 [facility] Last Admin: 10/16/16 13:25 Dose: 5,000 units Hydralazine HCl (Apresoline) 10 mg IVP Q6H [facility] Last Admin: 10/16/16 18:11 Dose: Not Given Hydroxyzine HCl (Atarax) 10 mg PO Q6H PRN PRN Reason: Anxiety Ibuprofen (Motrin Tab) 400 mg PO Q6H PRN PRN Reason: Pain, moderate (4-7) Last Admin: 10/16/16 10:44 Dose: 400 mg Lidocaine (Lidocaine 5%) 0 gm TOP BID [facility] Last Admin: 10/16/16 18:16 Dose: 1 scoopful Lidocaine (Lidoderm) 1 ea TD HS [facility] Last Admin: 10/15/16 21:12 Dose: 1 ea Loperamide HCl (Imodium) 2 mg PO Q8 PRN PRN Reason: Diarrhea Last Admin: 10/14/16 04:01 Dose: 2 mg Metoprolol Tartrate (Lopressor) 25 mg PO BID [facility] Last Admin: 10/16/16 18:17 Dose: 25 mg Mirtazapine (Remeron) 15 mg PO HS [facility] Last Admin: 10/15/16 21:12 Dose: 15 mg Neomycin/Polymyxin/Hydrocortisone (Cortisporin Opht Susp) 0 ml OP DAILY [facility] Last Admin: 10/16/16 10:39 Dose: 1 drop Ondansetron HCl (Zofran Tab) 4 mg PO Q8 PRN PRN Reason: Nausea/Vomiting Last Admin: 10/14/16 04:01 Dose: 4 mg Ondansetron HCl (Zofran Inj) 4 mg IVP Q6 [facility] Last Admin: 10/16/16 18:12 Dose: Not Given Oxycodone HCl (Oxycontin Extended Release Tab) 10 mg PO Q12H [facility] Stop: 10/17/16 22:01 Last Admin: 10/16/16 10:42 Dose: Not Given Pantoprazole Sodium (Protonix Ec Tab) 40 mg PO DAILY [facility] Last Admin: 10/16/16 10:38 Dose: 40 mg Trazodone HCl (Desyrel) 50 mg PO HS PRN PRN Reason: insomnia - Labs Labs: 10/16/16 07:55 10/16/16 07:55 - Constitutional Appears: Well, Non-toxic, No Acute Distress - Head Exam Head Exam: ATRAUMATIC, NORMAL INSPECTION, NORMOCEPHALIC - Eye Exam Eye Exam: EOMI, Normal appearance, PERRL - ENT Exam ENT Exam: Mucous Membranes Moist, Normal Exam - Neck Exam Neck Exam: Full ROM, Normal Inspection. absent: Lymphadenopathy - Respiratory Exam Respiratory Exam: Clear to Ausculation Bilateral, NORMAL BREATHING PATTERN - Cardiovascular Exam Cardiovascular Exam: REGULAR RHYTHM, +S1, +S2. absent: Murmur - GI/Abdominal Exam GI & Abdominal Exam: Soft, Normal Bowel Sounds. absent: Tenderness - Rectal Exam Rectal Exam: Deferred - Extremities Exam Extremities Exam: Full ROM, Normal Capillary Refill, Normal Inspection. absent : Joint Swelling, Pedal Edema - Neurological Exam Neurological Exam: Alert, Awake - Psychiatric Exam Psychiatric exam: Agitated, Normal Affect, Normal Mood - Skin Skin Exam: Dry, Intact, Normal Color, Warm Assessment and Plan - Assessment and Plan (Free Text) Assessment: (1) Substance abuse withdrawal Assessment & Plan: Psychiatry on board (Dr. Perez)---> Help appreciated 10/16: Methadone 5mg given today at 4pm 10/15: Per Dr Mahajan of Psychiatry, "Not interested in [facility] treatment afterwards as she did not have bhv aspects of addiction. She wants to see a new pain dr who will not rx her any opioids. Cleared for d/c " Methadone Taper : On hold due to nausea * Restarted today and patient will receive last dose tomorrow morning Morphine 4mg IV Q3 due to nausea (Discontinued) Morphine 15mg PO Q12H (Discontinued) Status: Acute (2) Nausea & vomiting Assessment & Plan: Resolved Zofran 4mg IV q6H PRN Status: Acute (3) Diarrhea Assessment & Plan: Resolved 1/2 NS @ 80mls/hr Imodium 2mg PO Q8h PRN Maalox held Status: Acute (4) Chronic pain Assessment & Plan: Lidoderm Transdermal patch 5% TD HS Morphine 15mg PO Q12h (Discotinued as of 10/13/16) Oxycodone 10mg po Q12H Status: Chronic (5) Hypertension Assessment & Plan: Continue home meds with holding parameters: Cardizem 180mg PO daily, Furosemide 40mg PO BID, and Lopressor 25mg PO BID * Hydralazine 10mg IV if SBP >160mmhg * Vitals q4h Status: Chronic (6) Cerebral aneurysm Assessment & Plan: Last Brain MRA from 09/2014 reviewed: A 8mm medially-projecting, para opthalmic aneurysm arising from the left supraclinoid ICA. 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 Two 2mm medially and laterally projecting right-sided para ophthalmic aneurysms. * Maintain strict blood pressure control (SBP<140) * Patient following with outpatient neurosurgeon Dr Stein, no acute management at this time. Status: Chronic (7) Prophylactic measure Assessment & Plan: Ambulating Protonix 40mg PO daily Heparin 5000 units SC q8h Status: Acute <Jeffery Loza - Last Filed: 10/17/16 15:26> Objective - Vital Signs/Intake and Output Vital Signs (last 24 hours): Temp Pulse Resp BP Pulse Ox 97.9 F 69 20 125/79 97 10/17/16 08:38 10/17/16 12:46 10/17/16 08:38 10/17/16 12:46 10/17/16 08:38 - Medications Medications: Current Medications Acetaminophen (Tylenol 325mg Tab) 325 mg PO Q6 PRN PRN Reason: Pain, moderate (4-7) Last Admin: 10/15/16 22:09 Dose: 325 mg Amlodipine Besylate (Norvasc) 10 mg PO DAILY [facility] Last Admin: 10/17/16 09:43 Dose: 10 mg Cyproheptadine HCl (Periactin) 4 mg PO HS [facility] Last Admin: 10/16/16 22:34 Dose: 4 mg Diltiazem HCl (Cardizem Cd) 120 mg PO DAILY [facility] Last Admin: 10/17/16 09:45 Dose: 120 mg Donepezil HCl (Aricept) 10 mg PO HS [facility] Last Admin: 10/16/16 22:34 Dose: 10 mg Furosemide (Lasix) 20 mg PO DAILY [facility] Last Admin: 10/17/16 09:43 Dose: 20 mg Hydralazine HCl (Apresoline) 10 mg IVP Q6H [facility] Last Admin: 10/17/16 12:47 Dose: 10 mg Hydroxyzine HCl (Atarax) 10 mg PO Q6H PRN PRN Reason: Anxiety Ibuprofen (Motrin Tab) 400 mg PO Q6H PRN PRN Reason: Pain, moderate (4-7) Last Admin: 10/16/16 10:44 Dose: 400 mg Lidocaine (Lidocaine 5%) 0 gm TOP BID [facility] Last Admin: 10/17/16 09:46 Dose: 1 scoopful Lidocaine (Lidoderm) 1 ea TD HS [facility] Last Admin: 10/16/16 22:35 Dose: 1 ea Loperamide HCl (Imodium) 2 mg PO Q8 PRN PRN Reason: Diarrhea Last Admin: 10/14/16 04:01 Dose: 2 mg Metoprolol Tartrate (Lopressor) 25 mg PO BID [facility] Last Admin: 10/17/16 09:44 Dose: 25 mg Mirtazapine (Remeron) 15 mg PO HS [facility] Last Admin: 10/16/16 22:34 Dose: 15 mg Neomycin/Polymyxin/Hydrocortisone (Cortisporin Opht Susp) 0 ml OP DAILY [facility] Last Admin: 10/17/16 09:43 Dose: 1 drop Ondansetron HCl (Zofran Tab) 4 mg PO Q8 PRN PRN Reason: Nausea/Vomiting Last Admin: 10/14/16 04:01 Dose: 4 mg Ondansetron HCl (Zofran Inj) 4 mg IVP Q6 [facility] Last Admin: 10/17/16 05:47 Dose: Not Given Oxycodone HCl (Oxycontin Extended Release Tab) 10 mg PO Q12H [facility] Stop: 10/17/16 22:01 Last Admin: 10/17/16 11:59 Dose: 10 mg Pantoprazole Sodium (Protonix Ec Tab) 40 mg PO DAILY [facility] Last Admin: 10/17/16 09:43 Dose: 40 mg Trazodone HCl (Desyrel) 50 mg PO HS PRN PRN Reason: insomnia - Labs Labs: 10/17/16 08:00 10/17/16 08:00 Attending/Attestation - Attestation I have personally seen and examined this patient.: Yes I have fully participated in the care of the patient.: Yes I have reviewed all pertinent clinical information, including history, physical exam and plan: Yes Notes (Text): 10/17/16 15:25 Patient was seen and examined at bedside with the resident Patient is feeling much better She has completed methadone taper She is clear for discharge by psychiatry We will arrange follow-up and discharge the patient home Discussed with the resident and agree with the history and physical and assessment/plan but the resident
[2016-10-16] MEDS: Lidocaine 5% Patch TD SCH (22:35)
[2016-10-17 08:19] LABS: BASO # 0.1 K/uL (0.0-0.2); BASO % 0.6 % (0.0-2.0); EOS # 0.2 K/uL (0.0-0.7); EOS % 2.1 % (0.0-4.0); LYMPH # 2.4 K/uL (1.0-4.3); LYMPH % 29.2 % (20.0-40.0); MEAN CELL VOLUME 88.2 fL (81.0-99.0); MEAN CORPUSCULAR HEMOGLOBIN 29.3 pg (27.0-31.0); MEAN CORPUSCULAR HGB CONC 33.2 g/dL (33.0-37.0); MEAN PLATELET VOLUME 9.6 fL (7.2-11.7); MONO # 0.9 K/uL (0.0-0.8); MONO % 10.5 % (0.0-10.0); NEUT # 4.7 K/uL (1.8-7.0); NEUT % 57.6 % (50.0-75.0); RBC 4.78 Mil/uL (3.80-5.20); RED CELL DISTRIBUTION WIDTH 13.6 % (11.5-14.5); WHITE BLOOD COUNT 8.2 K/uL (4.8-10.8)
[2016-10-17 08:28] LABS: ALBUMIN 4.1 g/dL (3.5-5.0)
[2016-10-17 08:33] LABS: ALB/GLOB RATIO 1.2 (1.0-2.1); CALCIUM 10.2 mg/dl (8.6-10.4)
[2016-10-17] MEDS: POLYMYXIN OP SCH (09:43)
[2016-10-17] MEDS: Pantoprazole 40 mg EC Tab PO SCH (09:43)
[2016-10-17] MEDS: NEOMYCIN OP SCH (09:43)
[2016-10-17] MEDS: HYDROCORT OP SCH (09:43)
[2016-10-17] MEDS: diltiaZEM 120 mg/24 Hours CD Cap PO SCH (09:45)
[2016-10-17] MEDS: Lidocaine 5% Oint(35 gm) TOP SCH (09:46)
--- NOTE | 2016-10-17 10:20 | CP.PCM.DIS ---
<Rosi Oliveira E - Last Filed: 10/17/16 22:22> Provider - Provider Date of Admission: 10/11/16 22:03 Attending physician: Varghese Green DO Time Spent in preparation of Discharge (in minutes): 45 Diagnosis - Discharge Diagnosis (1) Substance abuse withdrawal Status: Acute (2) Nausea & vomiting Status: Acute (3) Diarrhea Status: Acute (4) Chronic pain Status: Chronic (5) Hypertension Status: Chronic (6) Cerebral aneurysm Status: Chronic (7) Prophylactic measure Status: Acute Hospital Course - Lab Results Lab Results: Most Recent Lab Values WBC 8.2 K/uL (4.8-10.8) 10/17/16 08:00 RBC 4.78 Mil/uL (3.80-5.20) 10/17/16 08:00 Hgb 14.0 g/dL (11.0-16.0) 10/17/16 08:00 Hct 42.2 % (34.0-47.0) 10/17/16 08:00 MCV 88.2 fL (81.0-99.0) 10/17/16 08:00 MCH 29.3 pg (27.0-31.0) 10/17/16 08:00 MCHC 33.2 g/dL (33.0-37.0) 10/17/16 08:00 RDW 13.6 % (11.5-14.5) 10/17/16 08:00 Plt Count 284 K/uL (130-400) 10/17/16 08:00 MPV 9.6 fL (7.2-11.7) 10/17/16 08:00 Neut % (Auto) 57.6 % (50.0-75.0) 10/17/16 08:00 Lymph % (Auto) 29.2 % (20.0-40.0) 10/17/16 08:00 Gaines % (Auto) 10.5 % (0.0-10.0) H 10/17/16 08:00 Eos % (Auto) 2.1 % (0.0-4.0) 10/17/16 08:00 Baso % (Auto) 0.6 % (0.0-2.0) 10/17/16 08:00 Neut # 4.7 K/uL (1.8-7.0) 10/17/16 08:00 Lymph # 2.4 K/uL (1.0-4.3) 10/17/16 08:00 Gaines # 0.9 K/uL (0.0-0.8) H 10/17/16 08:00 Eos # 0.2 K/uL (0.0-0.7) 10/17/16 08:00 Baso # 0.1 K/uL (0.0-0.2) 10/17/16 08:00 Sodium 140 mmol/L (132-148) 10/17/16 08:00 Potassium 4.5 mmol/L (3.6-5.2) 10/17/16 08:00 Chloride 99 mmol/L (98-107) 10/17/16 08:00 Carbon Dioxide 31 mmol/L (22-30) H 10/17/16 08:00 Anion Gap 15 (10-20) 10/17/16 08:00 BUN 28 mg/dL (7-17) H 10/17/16 08:00 Creatinine 1.2 MG/DL (0.7-1.2) 10/17/16 08:00 Est GFR ( Amer) 53 10/17/16 08:00 Est GFR (Non-Af Amer) 44 10/17/16 08:00 Random Glucose 105 mg/dL (65-105) 10/17/16 08:00 Calcium 10.2 mg/dl (8.6-10.4) 10/17/16 08:00 Phosphorus 3.2 mg/dL (2.5-4.5) 10/16/16 07:55 Magnesium 1.9 mg/dL (1.6-2.3) 10/16/16 07:55 Total Bilirubin 0.6 mg/dL (0.2-1.3) 10/17/16 08:00 AST 29 U/L (14-36) 10/17/16 08:00 ALT 20 U/L (9-52) 10/17/16 08:00 Alkaline Phosphatase 78 U/L (38-126) 10/17/16 08:00 Total Protein 7.3 g/dL (6.3-8.3) 10/17/16 08:00 Albumin 4.1 g/dL (3.5-5.0) 10/17/16 08:00 Globulin 3.3 gm/dL (2.2-3.9) 10/17/16 08:00 Albumin/Globulin Ratio 1.2 (1.0-2.1) 10/17/16 08:00 Urine Color Yellow (YELLOW) 10/11/16 21:06 Urine Clarity Clear (Clear) 10/11/16 21:06 Urine pH 5.0 (5.0-8.0) 10/11/16 21:06 Ur Specific Matlock 1.013 (1.003-1.030) 10/11/16 21:06 Urine Protein Negative mg/dL (NEGATIVE) 10/11/16 21:06 Urine Glucose (UA) Normal mg/dL (Normal) 10/11/16 21:06 Urine Ketones Negative mg/dL (NEGATIVE) 10/11/16 21:06 Urine Blood Negative (NEGATIVE) 10/11/16 21:06 Urine Nitrate Negative (NEGATIVE) 10/11/16 21:06 Urine Bilirubin Negative (NEGATIVE) 10/11/16 21:06 Urine Urobilinogen Normal mg/dL (0.2-1.0) 10/11/16 21:06 Ur Leukocyte Esterase Neg Milagro/uL (Negative) 10/11/16 21:06 Urine WBC (Auto) 2 /hpf (0-5) 10/11/16 21:06 Urine RBC (Auto) 3 /hpf (0-3) 10/11/16 21:06 Ur Transition Epith Cell < 1 /hpf (0-3) 10/11/16 21:06 Urine Bacteria Rare (<OCC) 10/11/16 21:06 Hyaline Casts 0-2 /lpf (0-2) 10/11/16 21:06 Urine Opiates Screen Positive (NEGATIVE) 10/11/16 21:06 Urine Methadone Screen Negative (NEGATIVE) 10/11/16 21:06 Ur Barbiturates Screen Negative (NEGATIVE) 10/11/16 21:06 Ur Phencyclidine Scrn Negative (NEGATIVE) 10/11/16 21:06 Ur Amphetamines Screen Negative (NEGATIVE) 10/11/16 21:06 U Benzodiazepines Scrn Positive (NEGATIVE) 10/11/16 21:06 U Oth Cocaine Metabols Negative (NEGATIVE) 10/11/16 21:06 U Cannabinoids Screen Positive (NEGATIVE) 10/11/16 21:06 Alcohol, Quantitative < 10 mg/dl (0-10) 10/11/16 20:40 - Hospital Course Hospital Course: As per admission: HPI: Medicine Consult Note- Dr Green's Service Patient is a 76 year old female with PMHx of HTN, cerebral aneursym, cataracts, TIA, mitral valve prolapse, and chronic pain who was admitted to detox for opioid use disorder. Medicine team was consulted for medical management. Patient takes medication for her blood pressure control daily and is compliant with her meds. Patient follows with her PMD Dr Zuri Quezada at [facility] routinely. Patient also has seen a creative services producer in the past for her MVP and was told that she was stable and did not need intervention. Patient follows with neurosurgeon Dr Stein as outpatient and is currently in the process of arranging for repair of her aneurysm. Patient states that she feels well today and denies withdrawal symptoms such as nausea, vomiting, pain, tremor, headache , dizziness, abdominal pain, sweats, diarrhea, and constipation. This is patient's first time in detox unit and is looking forward to discontinuing her narcotic use. All other ROS reviewed and negative at this time. Hospital Course : Patient is a 76 year old female with past medical history of HTN, cerebral aneursym, cataracts, TIA, mitral valve prolapse and chronic pain who was followed by the medicine team for uncontrolled hypertension while remaining on the detox unit. Patient was then transferred from the detox unit to medicine floor on 10/14/16 for opioid withdrawals. Patient was admitted to the medicine floor and was medically managed for opioid withdrawal symptoms of vomiting, nausea and diarrhea. Patient also continued on her tapered methadone dose as per recommendation by psychiatry. Patient started to improve within the next day with symptoms of diarrrhea, nausea and vomiting resolved. Dr. Mahajan, a psychiatrist, was on board and managed patient's history of opioid abuse and withdrawal. Patient improved significantly and was discharge after clearance by the medicine team and psychiatry. Discharge Exam - Head Exam Head Exam: ATRAUMATIC, NORMAL INSPECTION, NORMOCEPHALIC - Eye Exam Eye Exam: EOMI, Normal appearance - ENT Exam ENT Exam: Mucous Membranes Moist, Normal Exam - Respiratory Exam Respiratory Exam: Clear to PA & Lateral, NORMAL BREATHING PATTERN - Cardiovascular Exam Cardiovascular Exam: REGULAR RHYTHM, +S1, +S2 - GI/Abdominal Exam GI & Abdominal Exam: Normal Bowel Sounds, Soft - Neurological Exam Neurological exam: Alert, Oriented x3 - Psychiatric Exam Psychiatric exam: Normal Affect, Normal Mood - Skin Skin Exam: Dry, Normal Color, Warm Discharge Plan - Discharge Medications Prescriptions: amLODIPine [Norvasc] 10 mg PO DAILY #30 tab Diltiazem HCl [Cartia Xt] 180 mg PO DAILY #30 Donepezil [Aricept] 10 mg PO HS #30 tab Furosemide [Lasix] 20 mg PO DAILY #30 tab Metoprolol Tartrate [Lopressor] 25 mg PO BID #60 Mirtazapine [Remeron] 15 mg PO HS #30 tab Ondansetron [Zofran Tab] 4 mg PO Q8 PRN #50 tab PRN Reason: Nausea/Vomiting traZODone [Desyrel] 50 mg PO HS PRN #15 tab PRN Reason: insomnia - Follow Up Plan Condition: FAIR Disposition: HOME/ ROUTINE Instructions: Chronic Pain (DC), Narcotic Abuse (DC), Chronic Hypertension (DC) , Opioid Withdrawal (DC), Nonruptured Cerebral Aneurysm (DC) Additional Instructions: Please discharge home as per as Dr. Loza Please start the following new medications as prescribed: 1. Donepezil 10mg PO HS 2. Norvasc 10mg PO daily 3. Furosemide 20mg PO daily 4. Diltiazem 180mg PO daily 5. Metoprolol tartate 25 mg PO BID 6. Remeron 15mg PO HS 7. Zofran 4mg PO q8 PRN 8. Trazadone 50mg PO HS Please resume all home medications as prescribed. Please follow up with your preferred primary care physician or [facility] within one week Please follow up with your preferred psychiarty or Dr. Mahajan within one week Please follow up with your ophthalmology within one week. Discharge Hotline Numbers: [place] [facility] 24 Hour Hotline: HELP (2269) ID Addictions Services Hotline - AA- Alcoholics Anonymous 24 Hour Hotline: 2-308-434- 2692 NA- Narcotics Anonymous 24 Hour Hotline: ID Outline (cigarettes): If needed you can reach the detox unit at Avoid all mood and mind altering substances including alcohol. Make every effort to make 90 meetings in 90 days and obtain a sponsor and get involved in 12 step recovery. Follow up with you primary doctor for your medical needs Nutrition: Eat balanced meals incorporating fruits, vegetables and protein. Drink plenty of water throughout the day at least 8 to 10 cups. Sleep is extremely important in your recovery. <Jeffery Loza - Last Filed: 10/18/16 17:47> Provider - Provider Date of Admission: 10/11/16 22:03 Attending physician: Varghese Green, DO Hospital Course - Lab Results Lab Results: Most Recent Lab Values WBC 8.2 K/uL (4.8-10.8) 10/17/16 08:00 RBC 4.78 Mil/uL (3.80-5.20) 10/17/16 08:00 Hgb 14.0 g/dL (11.0-16.0) 10/17/16 08:00 Hct 42.2 % (34.0-47.0) 10/17/16 08:00 MCV 88.2 fL (81.0-99.0) 10/17/16 08:00 MCH 29.3 pg (27.0-31.0) 10/17/16 08:00 MCHC 33.2 g/dL (33.0-37.0) 10/17/16 08:00 RDW 13.6 % (11.5-14.5) 10/17/16 08:00 Plt Count 284 K/uL (130-400) 10/17/16 08:00 MPV 9.6 fL (7.2-11.7) 10/17/16 08:00 Neut % (Auto) 57.6 % (50.0-75.0) 10/17/16 08:00 Lymph % (Auto) 29.2 % (20.0-40.0) 10/17/16 08:00 Gaines % (Auto) 10.5 % (0.0-10.0) H 10/17/16 08:00 Eos % (Auto) 2.1 % (0.0-4.0) 10/17/16 08:00 Baso % (Auto) 0.6 % (0.0-2.0) 10/17/16 08:00 Neut # 4.7 K/uL (1.8-7.0) 10/17/16 08:00 Lymph # 2.4 K/uL (1.0-4.3) 10/17/16 08:00 Gaines # 0.9 K/uL (0.0-0.8) H 10/17/16 08:00 Eos # 0.2 K/uL (0.0-0.7) 10/17/16 08:00 Baso # 0.1 K/uL (0.0-0.2) 10/17/16 08:00 Sodium 140 mmol/L (132-148) 10/17/16 08:00 Potassium 4.5 mmol/L (3.6-5.2) 10/17/16 08:00 Chloride 99 mmol/L (98-107) 10/17/16 08:00 Carbon Dioxide 31 mmol/L (22-30) H 10/17/16 08:00 Anion Gap 15 (10-20) 10/17/16 08:00 BUN 28 mg/dL (7-17) H 10/17/16 08:00 Creatinine 1.2 MG/DL (0.7-1.2) 10/17/16 08:00 Est GFR ( Amer) 53 10/17/16 08:00 Est GFR (Non-Af Amer) 44 10/17/16 08:00 Random Glucose 105 mg/dL (65-105) 10/17/16 08:00 Calcium 10.2 mg/dl (8.6-10.4) 10/17/16 08:00 Phosphorus 3.2 mg/dL (2.5-4.5) 10/16/16 07:55 Magnesium 1.9 mg/dL (1.6-2.3) 10/16/16 07:55 Total Bilirubin 0.6 mg/dL (0.2-1.3) 10/17/16 08:00 AST 29 U/L (14-36) 10/17/16 08:00 ALT 20 U/L (9-52) 10/17/16 08:00 Alkaline Phosphatase 78 U/L (38-126) 10/17/16 08:00 Total Protein 7.3 g/dL (6.3-8.3) 10/17/16 08:00 Albumin 4.1 g/dL (3.5-5.0) 10/17/16 08:00 Globulin 3.3 gm/dL (2.2-3.9) 10/17/16 08:00 Albumin/Globulin Ratio 1.2 (1.0-2.1) 10/17/16 08:00 Urine Color Yellow (YELLOW) 10/11/16 21:06 Urine Clarity Clear (Clear) 10/11/16 21:06 Urine pH 5.0 (5.0-8.0) 10/11/16 21:06 Ur Specific Matlock 1.013 (1.003-1.030) 10/11/16 21:06 Urine Protein Negative mg/dL (NEGATIVE) 10/11/16 21:06 Urine Glucose (UA) Normal mg/dL (Normal) 10/11/16 21:06 Urine Ketones Negative mg/dL (NEGATIVE) 10/11/16 21:06 Urine Blood Negative (NEGATIVE) 10/11/16 21:06 Urine Nitrate Negative (NEGATIVE) 10/11/16 21:06 Urine Bilirubin Negative (NEGATIVE) 10/11/16 21:06 Urine Urobilinogen Normal mg/dL (0.2-1.0) 10/11/16 21:06 Ur Leukocyte Esterase Neg Milagro/uL (Negative) 10/11/16 21:06 Urine WBC (Auto) 2 /hpf (0-5) 10/11/16 21:06 Urine RBC (Auto) 3 /hpf (0-3) 10/11/16 21:06 Ur Transition Epith Cell < 1 /hpf (0-3) 10/11/16 21:06 Urine Bacteria Rare (<OCC) 10/11/16 21:06 Hyaline Casts 0-2 /lpf (0-2) 10/11/16 21:06 Urine Opiates Screen Positive (NEGATIVE) 10/11/16 21:06 Urine Methadone Screen Negative (NEGATIVE) 10/11/16 21:06 Ur Barbiturates Screen Negative (NEGATIVE) 10/11/16 21:06 Ur Phencyclidine Scrn Negative (NEGATIVE) 10/11/16 21:06 Ur Amphetamines Screen Negative (NEGATIVE) 10/11/16 21:06 U Benzodiazepines Scrn Positive (NEGATIVE) 10/11/16 21:06 U Oth Cocaine Metabols Negative (NEGATIVE) 10/11/16 21:06 U Cannabinoids Screen Positive (NEGATIVE) 10/11/16 21:06 Alcohol, Quantitative < 10 mg/dl (0-10) 10/11/16 20:40 Attending/Attestation - Attestation I have personally seen and examined this patient.: Yes I have fully participated in the care of the patient.: Yes I have reviewed all pertinent clinical information, including history, physical exam and plan: Yes Notes (Text): 10/18/16 17:46 Patient was seen and examined at bedside She is feeling comfortable Patient clear for discharge by psychiatry No further episode of nausea vomiting or diarrhea We will discharge the patient home All prescriptions given for home medication Discussed the discharge plan with the patient and she verbalized understanding I agree with the discharge note by the resident
[2016-10-17] MEDS: oxyCODONE 10 mg ER Tab (oxyCONTIN) PO SCH (11:59)
[2016-10-17 17:13] VITALS: BP 99/63; PULSE 75; TEMP 98.1; O2SAT 95
== END 2016-10-17 18:38 | disposition home or self-care (01) | DRG 895 ==
LOC: C.ER 19:35 → C.7D 22:03 → C.5T 10-14 16:52
PROVIDERS: ADMIT Hospitalist; ATTEND Hospitalist
PROC: HZ2ZZZZ Detoxification Services for Substance Abuse Treatment (ICD-10-PCS; principal; 2016-10-11)
PROC: HZ56ZZZ Individual Psychotherapy for Substance Abuse Treatment, Psychoeducation (ICD-10-PCS; 2016-10-11)
PROC: HZ59ZZZ Individual Psychotherapy for Substance Abuse Treatment, Supportive (ICD-10-PCS; 2016-10-11)
PROC: HZ81ZZZ Medication Management for Substance Abuse Treatment, Methadone Maintenance (ICD-10-PCS; 2016-10-11)
DX: F11.23 Opioid dependence with withdrawal (principal); I67.1 Cerebral aneurysm, nonruptured; M06.9 Rheumatoid arthritis, unspecified; I10 Essential (primary) hypertension; G89.29 Other chronic pain; F41.9 Anxiety disorder, unspecified; Z86.73 Personal history of transient ischemic attack (TIA), and cerebral infarction without residual deficits; Z87.891 Personal history of nicotine dependence